=== PATIENT | female | born 1980 | race African-American/Black ===

== ENCOUNTER → 2016-11-07 | Day surgery (SDC) | payer OTHER ==
[~2016-11-07] VITALS: Ht 167.6 cm; Wt 127.0 kg
[~2016-11-07] MED LIST: CYCLOBENZAPRINE10 M1 PO; MOBIC15 M1 PO
--- NOTE | 2016-11-07 11:28 | Operative Report ---
Operative/Inv Procedure Report Surgery Date: 11/07/16 Name of Procedure: Laparoscopy peritoneal washings Pre-Operative Diagnosis: Pelvic pain and pelvic mass Post-Operative Diagnosis: Fibroids fibroids degenerating Estimated Blood Loss: scant Surgeon/Warehouse Freight Handler: JUAQUIN KAY MD Anesthesia: general endotracheal tube Operative/Procedure Note Note: Was taken the operating room placed supine position after adequate induction general anesthesia via endotracheal tube patient placed in dorsolithotomy position the vagina was prepped and draped so fashion bladder was catheterized examination under anesthesia was performed surgeon regowned and gloved the abdomen was prepped and draped so fashion stab incision was made the umbilicus a Veress needle was inserted atraumatically the umbilicus was a negative drop test the abdomen was insufflated proximal 4 L of CO2 to liver edge dullness at which point the Veress needle was removed a 10 mm trocar was inserted atraumatically through that sheath a laparoscope was placed under direct visualization a 5 mm trocar was placed 2 fingerbreadths of symptoms pubis in the midline at this point fluid was placed into the abdomen pictures were taken maximal CO2 was removed peritoneal washings were sent off on the on since removed from the abdomen the incision at the umbilicus was oversewn using 0 for the fascia 3-year -old was used for the skin incision a 5 mm trocar incision was closed using 30 Marcaine was injected underneath both incisions at the end the case the Pedroza cannula was moved Harper was removed wants was removed from the vagina patient was returned spine position she was awakened from anesthesia extubated and transferred recovery room awake and alert with counts correct Findings: 16 week size fibroid uterus with a 4 cm anterior cervical fibroid a 5 cm fibroid pedunculated degenerating a 3 cm posterior fundal fibroid and a 2 cm anterior fundal fibroid normal ovaries bilaterally otherwise normal anatomy
== END ==
LOC: STS 11-06 23:07
DX: R10.2 Pelvic and perineal pain (principal); D25.9 Leiomyoma of uterus, unspecified; D26.0 Other benign neoplasm of cervix uteri
CPT/HCPCS: 81025; 88305; J0131; J2250; J2405

== ENCOUNTER 2018-01-29 09:19 | Inpatient (IN) | payer OTHER ==
[~2018-01-29] VITALS: Ht 167.6 cm; Wt 135.2 kg
[2018-01-29 10:12] LABS: ABSOLUTE BASOPHIL COUNT 0 /CUMM (0.0-0.2); ABSOLUTE EOSINOPHIL COUNT 0.1 /CUMM (0.0-0.7); ABSOLUTE GRANULOCYTE CT 4.3 /CUMM (1.4-6.5); ABSOLUTE LYMPH COUNT 1.7 /CUMM (1.2-3.4); ABSOLUTE MONOCYTE COUNT 0.5 /CUMM (0.10-0.60); BASOPHIL % 0.2 % (0.0-2.0); EOSINOPHIL % 0.8 % (0-5); GRANULOCYTE % 66.6 % (42.2-75.2); MEAN CORPUSCULAR HGB 24.8 PG (27.0-31.0); MEAN CORPUSCULAR HGB CONC 32.7 G/DL (33.0-37.0); MEAN CORPUSCULAR VOLUME 75.7 FL (81.0-99.0); MEAN PLATELET VOLUME 8.8 FL (7.4-10.4); PLATELET COUNT 324 /CUMM (130-400); RBC DISTRIBUTION WIDTH 16.8 % (11.5-14.5); RED BLOOD CELL CT 4.75 /CUMM (4.20-5.40); WHITE BLOOD CELL COUNT 6.5 /CUMM (4.8-10.8)
--- NOTE | 2018-01-29 11:23 | History & Physical Pre-Op ---
General Information and HPI MD Statement: I have seen and personally examined DENILSON HICKEY and documented this H&P. The patient is a 37 year old F who presented with a patient stated chief complaint of LGA[]. History of Present Illness: 37-year-old 4 para 0030 at 39 weeks gestation with an inducible cervix and large for gestational age . Patient has had adequate care with normal level I level level II she's had a normal one-hour glucose test she has negative group B strep she knife discussed expectant management for large for gestational age at 39 weeks versus on induction with inducible cervix and the risks of morbid obesity and shoulder dystocia and Pitocin and patient has been given opportunity ask questions and signed her consents Allergies/Medications Allergies: Coded Allergies: NO KNOWN ALLERGIES (02/02/16) Home Med list No Known Home Medications Past History Medical History Neurological: NONE EENT: NONE Cardiovascular: NONE Respiratory: NONE Gastrointestinal: NONE Hepatic: NONE Renal: NONE Musculoskeletal: NONE Psychiatric: NONE Endocrine: NONE Blood Disorders: NONE Cancer(s): NONE 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 Surgical History Pertinent Surgical History: non-contributory, N Past Family/Social History Psychosocial History Smoking Status: Never Smoked Review of Systems Review of Systems: NEG 13 PT Exam & Diagnostic Data Last 24 Hrs of Vital Signs/I&O Intake & Output 01/29 1600 01/29 0800 01/29 0000 Intake Total Output Total Balance Patient 298 lb Weight Physical Exam: Obese black female in no apparent distress HEENT anicteric Lungs clear Heart S1 and S2 normal sinus rhythm Abdomen gravid estimated weight 3900 g Extremities +1 edema negative Homans Pelvic 4-5 cm 90% posterior vertex at 0 station intact Assessment/Plan Assessment/Plan: Assessment is term large for gestational age inducible cervix morbid obesity PlanPitocin induction IUPCi FM observe for As Ranked By This Provider Problem List: 1.
--- NOTE | 2018-01-29 20:36 | PN- Obstetrical ---
Subjective Subjective: I WANT THIS BABY OUT Objective Last 24 Hrs of Vital Signs/I&O Intake & Output 01/29 1600 01/29 0800 01/29 0000 Intake Total Output Total Balance Patient 298 lb Weight Physical Exam: PE OBESE BF IN NAD ABD SOFT NT [id number] EXT =1 EDEMA Obstetric Exam Dilation (cm): 9 Effacement (%): 100 Station: 0 Membranes: AROM Fluid: clear Multiple Gestation? No Contractions: Q 3MINUTES Assessment/Plan Assessment/Plan ASSESS TERM FAILED INDUCTION ARREST OF DILATION
[2018-01-30 00:25] VITALS: BP 100/60
[2018-01-30 07:52] LABS: ABSOLUTE BASOPHIL COUNT 0 /CUMM (0.0-0.2); ABSOLUTE EOSINOPHIL COUNT 0 /CUMM (0.0-0.7); ABSOLUTE GRANULOCYTE CT 8.7 /CUMM (1.4-6.5); ABSOLUTE LYMPH COUNT 1.3 /CUMM (1.2-3.4); ABSOLUTE MONOCYTE COUNT 0.7 /CUMM (0.10-0.60); BASOPHIL % 0.1 % (0.0-2.0); EOSINOPHIL % 0 % (0-5); GRANULOCYTE % 80.7 % (42.2-75.2); HEMATOCRIT 31.2 % (37-47); MEAN CORPUSCULAR HGB 24.8 PG (27.0-31.0); MEAN CORPUSCULAR HGB CONC 32.5 G/DL (33.0-37.0); MEAN CORPUSCULAR VOLUME 76.2 FL (81.0-99.0); MEAN PLATELET VOLUME 9.1 FL (7.4-10.4); PLATELET COUNT 265 /CUMM (130-400); RBC DISTRIBUTION WIDTH 16.5 % (11.5-14.5); RED BLOOD CELL CT 4.09 /CUMM (4.20-5.40)
[2018-01-30 08:04] LABS: WHITE BLOOD CELL COUNT 10.7 /CUMM (4.8-10.8)
[2018-01-30] MEDS ORDERED: IBUPROFEN800 M1 PO (09:28)
[2018-01-30] MEDS ORDERED: PERCOCET 5-3251 EACH PO (09:28)
--- NOTE | 2018-01-30 14:35 | PN- Post Delivery/GYN ---
Subjective Subjective: NO COMPLAINTS Review of Systems: nEGATIVE Objective Last 24 Hrs of Vital Signs/I&O Vital Signs Date Time Temp Pulse Resp B/P B/P Pulse O2 O2 Flow FiO2 Mean Ox Delivery Rate 01/30 0025 100/60 Physical Exam: OBESE BLACK FEMALE IN NO APPARENT DISTRESS SITTING IN CHAIR EATING HER BREAKFAST aBDOMEN SOFT NONTENDER fUNDUS FIRM NONTENDER INCISION CLEAN DRY AND INTACT eXTREMITIES +1 EDEMA NEGATIVE hOMANS Assessment/Plan Assessment/Plan ASSESSMENT STATUS POST PRIMARY LOW FLAP TRANSVERSE SECTION FOR SOFT TISSUE DYSTOCIA FIBROIDSSPACE ANEMIA pLAN CONTINUE POSTOP CARE ADVANCED DIET ADVANCE AMBULATION lOVENOX CHECK cbcS
--- NOTE | 2018-01-30 14:41 | Operative Report ---
Operative/Inv Procedure Report Surgery Date: 01/29/18 Name of Procedure: Primary low flap transverse section via Pfannenstiel skin incision Pre-Operative Diagnosis: Arrest of dilatation Post-Operative Diagnosis: Same soft tissue dystocia fibroids Estimated Blood Loss: 500 Surgeon/Road Freight Brake Coupler: Keagan GOMEZ,Angie Arevalo MD Anesthesia: general endotracheal tube, block Operative/Procedure Note Note: Patient was taken the operating room placed on position after adequate anesthesia patient placed in dorsolithotomy position the vagina was prepped and draped so fashion patient had a Harper I she had an epidural in place the epidural was dosed by anesthesia skin testing was performed 4 times found to be inadequate for surgery this point adequate general induction of anesthesia abdomen had been prepped and draped so fashion through Pfannenstiel skin incision skin was cut carried down to rectus fascia second knife cut in curvilinear fashion using Bovie on this point the rectus sheath was dissected bluntly as well as sharply off the rectus muscle . Peritoneum was entered high into the abdomen. Low blade the Ripley was placed and lower in the incision a bladder flap was developed sharply the low blade was replaced. In the lower uterine segment was nicked with a knife. The uterus was entered with the back of the knife. The incision was extended bluntly as well as sharply. All instruments were removed from the field the was delivered over the abdominal wall. The cord was doubly clamped and cut. The infant was handed to the document examiner was waiting in the delivery room to aid in the resuscitation. The placenta was delivered manually noted to be intact wiped with 4 wet dry laps continuous removal of the tissue using a Phyllis. Intravenous Pitocin as well as intramyometrial Pitocin was used for uterine contractility at this point uses oversewn rowlock and suture was indicated interrupted [id number] is well of 0 suture. 2 separate layers of 0 Vicryl were made. Hemostasis was apparent. The fascia was reapproximated to continue sutures #1 the skin was reapproximated using maria teresa after Bovie quite irrigation of the subcutaneous tissue. Patient was awakened from anesthesia extubated and transported recovery room awake alert with counts correct Findings: Enlarged uterus on 4 separate fibroids in the fundus 4 cm each normal ovaries bilaterally otherwise normal anatomy viable female vertex clear fluid three-vessel cord
--- NOTE | 2018-01-31 09:38 | PN- Post Delivery/GYN ---
Subjective Subjective: BOTTLE FEEDING Review of Systems: POS FLATUS Objective Last 24 Hrs of Vital Signs/I&O VSS AFEBRILE Physical Exam: INCISON C/D/I FF EXT NT Assessment/Plan Assessment/Plan S/P C/S POD2 STABLE DISCHARGE IN AM Problem List: 1.
--- NOTE | 2018-02-01 11:02 | PN- Post Delivery/GYN ---
Subjective Subjective: READY FOR DISCHARGE Review of Systems: NEG Objective Last 24 Hrs of Vital Signs/I&O VSS Physical Exam: FF WOUND C/D/I EXT NT Assessment/Plan Assessment/Plan S/P C/S POD3 STABLE DISCHARGE HOME F/U 2 WEEKS Problem List: 1.
== END 2018-02-01 11:15 | DRG 766 ==
LOC: GNO 09:19
PROVIDERS: Specialist
PROC: 10D00Z1 Extraction of Products of Conception, Low, Open Approach (ICD-10-PCS; principal; 2018-01-29)
PROC: 3E033VJ Introduction of Other Hormone into Peripheral Vein, Percutaneous Approach (ICD-10-PCS; 2018-01-29)
DX: O36.63X0 Maternal care for excessive fetal growth, third trimester, not applicable or unspecified (principal); E66.01 Morbid (severe) obesity due to excess calories; O62.1 Secondary uterine inertia; O90.81 Anemia of the puerperium; O34.13 Maternal care for benign tumor of corpus uteri, third trimester; O99.214 Obesity complicating childbirth; Z3A.39 39 weeks gestation of pregnancy; Z37.0 Single live birth
CPT/HCPCS: GNOP; GNOS; 36415; 81001; 87086; J0131; J0690; J1650; J1885; J7120

== ENCOUNTER 2018-02-05 09:31 | Inpatient (IN) | payer OTHER ==
[~2018-02-05] VITALS: Ht 167.6 cm; Wt 122.5 kg
[~2018-02-05 09:31] MED LIST changes: +IBUPROFEN800 M1 PO; +PERCOCET 5-3251 EACH PO
--- NOTE | 2018-02-05 09:59 | ED DYSPNEA/ASTHMA COMPLAINT ---
History of Present Illness General Chief Complaint: General Adult Stated Complaint: SOB; R SIDED ABD PAIN Source: patient Exam Limitations: no limitations Vital Signs & Intake/Output Vital Signs & Intake/Output Vital Signs Date Time Temp Pulse Resp B/P B/P Pulse O2 O2 Flow FiO2 Mean Ox Delivery Rate 02/05 1534 98.5 64 18 142/80 97 Room Air 02/05 1400 98.8 78 18 142/84 94 Room Air 02/05 1132 97.9 80 22 124/70 95 Room Air 02/05 0937 97.7 73 22 144/86 97 Room Air Allergies Coded Allergies: NO KNOWN ALLERGIES (02/02/16) Reconcile Medications No Known Home Medications Triage Note: PER PT INCREASED SOB X 2 DAYS RT SIDED RIB PAIN AND PAIN IN [employer] SP 1 WEEK AGO Triage Nurses Notes Reviewed? yes Onset: Abrupt Duration: day(s): (2-3) Timing: recent history Severity: moderate, severe : No Patient currently breastfeeds: No HPI: 37-year-old female postop 1 week ago comes into the emergency room with right upper abdominal pain shortness of breath is been going on for the last 2-3 days. She denies any fever chills coughing. She complains of some right upper abdominal pain. Sharp. Denies any discharge from her incision site or pain in her lower abdomen. Denies any fever chills. Denies any other associated symptoms. (Marlo French) Past History Travel History Traveled to [place] past 21 day No Medical History Any Pertinent Medical History? 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 No (Marlo French) Review of Systems Review of Systems Constitutional: Reports: no symptoms. EENTM: Reports: no symptoms. Respiratory: Reports: see HPI. Cardiovascular: Reports: see HPI. GI: Reports: see HPI. Genitourinary: Reports: no symptoms. Musculoskeletal: Reports: no symptoms. Skin: Reports: no symptoms. Neurological/Psychological: Reports: no symptoms. Hematologic/Endocrine: Reports: no symptoms. Immunologic/Allergic: Reports: no symptoms. All Other Systems: Reviewed and Negative (Marlo French) Physical Exam Physical Exam General Appearance: well developed/nourished, alert, awake, mild distress, obese Head: atraumatic Eyes: Bilateral: normal appearance. Ears, Nose, Throat: normal ENT inspection, hearing grossly normal Neck: normal inspection Respiratory: normal breath sounds, no respiratory distress Cardiovascular: regular rate/rhythm Gastrointestinal: soft, tenderness (RUQ), iNCISION SITE SHOWS NO DRAINAGE, NO ERYTHEMA, Extremities: normal inspection Neurologic/Psych: awake, alert, oriented x 3 Skin: intact, normal color Core Measures ACS in differential dx? Yes CVA/TIA Diagnosis No Sepsis Present: No Sepsis Focused Exam Completed? No (Marlo French) Progress Differential Diagnosis: asthma, AMI, CHF, pericarditis, pulmonary embolism, pneumonia, pneumothorax, cHOLECYSTITIS, BILIARY COLIC, PANCREATITIS Plan of Care: Orders Procedure Date/time Status Heart Healthy Diet 02/05 D Active Patient Data 02/05 1619 Active ECHOCARDIOGRAM 02/05 1616 Active ED Holding Orders 02/05 1533 Active Admit to inpatient 02/05 1533 Active Vital Signs 02/05 1533 Active Code Status 02/05 1533 Active Patient Data 02/05 1530 Active BLOOD CULTURE 02/05 1516 Active LIPASE 02/05 1118 Complete Intake & Output 02/05 1108 Active TROPONIN LEVEL 02/05 0959 Complete D-DIMER 02/05 0959 Complete COMPREHENSIVE METABOLIC PANEL 02/05 0959 Complete CBC WITHOUT DIFFERENTIAL 02/05 0959 Complete B-TYPE NATRIURETIC PEP (BNP) 02/05 0959 Complete EKG 02/05 0959 Active Laboratory Tests 02/05/18 1118: Anion Gap 11, Estimated GFR > 60, BUN/Creatinine Ratio 18.6, Glucose 109 H, Calcium 8.6, Total Bilirubin 0.6, AST 22, ALT 30, Alkaline Phosphatase 85, Troponin I 0.03, Dbw-T-Wxkhwcluyhf Pept 667 H, Total Protein 6.0 L, Albumin 2.9 L, Globulin 3.1, Albumin/Globulin Ratio 0.9 L, Lipase 37, D-Dimer High Sensitivty 1107 H, CBC w Diff MAN DIFF ORDERED, RBC 3.68 L, MCV 76.7 L, MCH 25.0 L, MCHC 32.7 L, RDW 17.1 H, MPV 8.1, Gran % 74.9, Lymphocytes % 13.9 L, Monocytes % 7.3, Eosinophils % 0.7, Basophils % 3.2 H, Absolute Granulocytes 5.0, Segmented Neutrophils 73, Band Neutrophils 2, Absolute Lymphocytes 0.9 L, Lymphocytes 15 L, Monocytes 9, Absolute Monocytes 0.5, Eosinophils 1, Absolute Eosinophils 0, Absolute Basophils 0.2, Platelet Estimate ADEQUATE, Polychromasia 2+, Hypochromic-Microcytic 2+, Anisocytosis 1+, Microcytic Cells 1+ 02/05/18 1016: Lipase Cancelled Microbiology 02/05 1625 BLOOD: Blood Culture - RECD 02/05 1516 BLOOD: Blood Culture - ORD Diagnostic Imaging: Viewed by Me: Radiology Read. Discussed w/RAD: Radiology Read. Radiology Impression: PATIENT: DENILSON HICKEY PRESENT AGE: 37 PATIENT ACCOUNT NO: [id number] : 82 LOCATION: [facility] ORDERING PHYSICIAN: Marlo BORREGO SERVICE DATE: 02/05/18 EXAM TYPE: CAT - CTA CHEST-PULMONARY EMBOLISM EXAMINATION: CT ANGIOGRAM OF THE CHEST WITH AND WITHOUT CONTRAST (CT PULMONARY ANGIOGRAM FOR PE) CLINICAL INFORMATION: Shortness of breath, elevated d-dimer, recent surgery. COMPARISON: Chest radiograph performed earlier the same day. TECHNIQUE: Prior to contrast administration, noncontrast localization images were obtained. Subsequently, multidetector volumetric imaging was performed from the thoracic inlet to below the diaphragms following the administration of 95 mL Optiray 320 intravenous contrast. No contrast reaction reported. Sagittal, coronal, and MIP oblique sagittal reformatted images were obtained on the CT workstation, uploaded to PACS, and reviewed. Total exam dose-length product 545 mGy-cm. FINDINGS: QUALITY OF STUDY/ CONTRAST BOLUS: Satisfactory PULMONARY ARTERIES: No central or segmental pulmonary emboli. THORACIC AORTA: No aneurysm or dissection. LUNG: The central airways are patent. There are patchy areas of consolidation throughout both lungs but predominantly involving the right upper and middle lobes and the bilateral lower lobes. There is some associated interlobular septal thickening. No confluent consolidation is seen. PLEURA: No pleural effusion or pneumothorax. MEDIASTINUM: Normal heart size. No pericardial effusion. No hilar or mediastinal lymphadenopathy. No evidence of septal bowing or right heart strain. CHEST WALL/ AXILLA: No axillary or internal mammary lymphadenopathy. OSSEOUS STRUCTURES: Mild dextroscoliotic curvature centered in the lower thoracic spine. UPPER ABDOMEN: No reflux of contrast into the hepatic veins to suggest elevated right heart pressures. IMPRESSION: - No central or segmental pulmonary embolism. - Patchy areas of multifocal consolidation involving both lungs compatible with atypical pneumonia. No confluent consolidation is seen. VTE: negative DICTATED BY: Jose Briseno MD DATE/TIME DICTATED:02/05/181419 CORE SHAPER SIDES: MATIAS DATE/TIME TRANSCRIBED:02/05/181419 CONFIDENTIAL, DO NOT COPY WITHOUT APPROPRIATE AUTHORIZATION. <Electronically signed in Other Vendor System> SIGNED BY: Jose Briseno MD 02/05/18 143, PATIENT: DENILSON HICKEY PRESENT AGE: 37 PATIENT ACCOUNT NO: [id number] : LOCATION: [facility] ORDERING PHYSICIAN: Marlo BORREGO SERVICE DATE: EXAM TYPE: US - US-LIMITED ABDOMEN EXAMINATION: US ABDOMEN LIMITED CLINICAL INFORMATION: Right upper quadrant pain.. COMPARISON: CT abdomen pelvis 08/13/2008 TECHNIQUE: Real-time imaging of the right upper quadrant abdominal viscera. Examination limited secondary to patient body habitus and patient's inability to maintain deep breath holds. FINDINGS: PANCREAS: Visualized portions of pancreas are normal in appearance. LIVER: The liver appears mildly enlarged. The liver demonstrates normal contour and echogenicity. No focal lesion or intrahepatic biliary duct dilatation. GALLBLADDER: The gallbladder is physiologically distended. Several gallstones are appreciated. There is regional gallbladder wall thickening where it abuts the liver, measuring up to 1.4 cm in thickness. There is some edema in this region of thickening. Sonographic Valdes' s sign is positive. COMMON BILE DUCT: Normal in caliber measuring 0.3 cm in diameter. RIGHT KIDNEY: Normal. No hydronephrosis. No renal calculi or focal parenchymal lesions. The kidney measures 13.1 cm in maximum dimension. FREE FLUID: None. IMPRESSION: Gallstones are present within a physiologically distended gallbladder. There is regional gallbladder wall thickening measuring up to 1.4 cm where the gallbladder abuts the liver. There is some edema in this region of wall thickening. Sonographic Valdes sign is positive. There is a long differential for these findings. This may represent early acute cholecystitis. This may also represent changes related to liver abnormality/disease. Clinical correlation and correlation with lab values is required. DICTATED BY: Lex Helton MD DATE/TIME DICTATED:02/05/181139 CORE SHAPER SIDES:MATIAS DATE/TIME TRANSCRIBED:02/05/181139 CONFIDENTIAL, DO NOT COPY WITHOUT APPROPRIATE AUTHORIZATION. <Electronically signed in Other Vendor System> SIGNED BY: Lex Helton MD 02/05/18 1203 Initial ED EKG: normal sinus rhythm, rate (74), nonspecific ST T wave chg (Marlo French) Departure Departure Disposition: STILL A PATIENT Condition: Stable Clinical Impression Primary Impression: Pneumonia Secondary Impressions: Cholelithiasis Referrals: Patient Has No Primary Care Dr (PCP/Family) Departure Forms: Customer Survey General Discharge Information Prescriptions: Current Visit Scripts No Known Home Medications Admission Note Spoke With: Antoinette Ruiz MD Documentation of Exam: Documentation of any treatments & extenuating circumstances including Concerns Regarding Discharge (functional status, medication knowledge or non-compliance, living conditions, etc.) that warrant an admission rather than observation: Patient has a multilobar pneumonia. She will require IV antibiotics. Concerns for cholecystitis on ultrasound. Patient will require IV antibiotics and monitoring of liver function tests and vital signs. Surgery consult. Patient may require a laparoscopic cholecystectomy. Surgery was consult and will follow the patient but do not want to do surgery immediately due to the pneumonia currently. (Marlo French) PA/EDUCATIONAL ASSISTANT TEACHER Co-Sign Statement Statement: ED Attending supervision documentation- [X] I saw and evaluated the patient. I have also reviewed all the pertinent lab results and diagnostic results. I agree with the findings and the plan of care as documented in the PA's/EDUCATIONAL ASSISTANT TEACHER's documentation. [X] I have reviewed the ED Record and agree with the PA's/EDUCATIONAL ASSISTANT TEACHER's documentation. [] Additions or exceptions (if any) to the PAs/EDUCATIONAL ASSISTANT TEACHER's note and plan are summarized below: [Patient to be admitted for IV antibiotics for pneumonia treatment and surgical consult for biliary colic.] (Garett GOMEZ,Norman Salazar) Critical Care Note Critical Care Note Critical Care Time: 30-74 min (35) (Marlo French) (Marlo French)
--- NOTE | 2018-02-05 10:31 | RADIOLOGY REPORT ---
EXAMINATION: XR CHEST CLINICAL INFORMATION: 37-year-old female patient with shortness of breath. COMPARISON: Chest x-ray on 12/10/2010. TECHNIQUE: 2 views of the chest were obtained. FINDINGS: Cardiovascular mediastinal structures remain normal. Left lung is clear. There is a trace right pleural effusion. Peribronchial thickening involving the right lower lobe is thought to represent early atypical pneumonia. IMPRESSION: Early atypical pneumonia right lower lobe. Trace right pleural effusion.
[2018-02-05 11:34] LABS: ABSOLUTE BASOPHIL COUNT 0.2 /CUMM (0.0-0.2); ABSOLUTE EOSINOPHIL COUNT 0 /CUMM (0.0-0.7); ABSOLUTE LYMPH COUNT 0.9 /CUMM (1.2-3.4); ABSOLUTE MONOCYTE COUNT 0.5 /CUMM (0.10-0.60); BASOPHIL % 3.2 % (0.0-2.0); EOSINOPHIL % 0.7 % (0-5); GRANULOCYTE % 74.9 % (42.2-75.2); HEMATOCRIT 28.2 % (37-47); MEAN CORPUSCULAR HGB CONC 32.7 G/DL (33.0-37.0); MEAN CORPUSCULAR VOLUME 76.7 FL (81.0-99.0); MEAN PLATELET VOLUME 8.1 FL (7.4-10.4); PLATELET COUNT 342 /CUMM (130-400); RBC DISTRIBUTION WIDTH 17.1 % (11.5-14.5); RED BLOOD CELL CT 3.68 /CUMM (4.20-5.40); WHITE BLOOD CELL COUNT 6.7 /CUMM (4.8-10.8)
--- NOTE | 2018-02-05 12:03 | ULTRASOUND REPORT ---
EXAMINATION: US ABDOMEN LIMITED CLINICAL INFORMATION: Right upper quadrant pain.. COMPARISON: CT abdomen pelvis 08/13/2008 TECHNIQUE: Real-time imaging of the right upper quadrant abdominal viscera. Examination limited secondary to patient body habitus and patient's inability to maintain deep breath holds. FINDINGS: PANCREAS: Visualized portions of pancreas are normal in appearance. LIVER: The liver appears mildly enlarged. The liver demonstrates normal contour and echogenicity. No focal lesion or intrahepatic biliary duct dilatation. GALLBLADDER: The gallbladder is physiologically distended. Several gallstones are appreciated. There is regional gallbladder wall thickening where it abuts the liver, measuring up to 1.4 cm in thickness. There is some edema in this region of thickening. Sonographic Valdes's sign is positive. COMMON BILE DUCT: Normal in caliber measuring 0.3 cm in diameter. RIGHT KIDNEY: Normal. No hydronephrosis. No renal calculi or focal parenchymal lesions. The kidney measures 13.1 cm in maximum dimension. FREE FLUID: None. IMPRESSION: Gallstones are present within a physiologically distended gallbladder. There is regional gallbladder wall thickening measuring up to 1.4 cm where the gallbladder abuts the liver. There is some edema in this region of wall thickening. Sonographic Valdes sign is positive. There is a long differential for these findings. This may represent early acute cholecystitis. This may also represent changes related to liver abnormality/disease. Clinical correlation and correlation with lab values is required.
--- NOTE | 2018-02-05 14:35 | CT SCAN REPORT ---
EXAMINATION: CT ANGIOGRAM OF THE CHEST WITH AND WITHOUT CONTRAST (CT PULMONARY ANGIOGRAM FOR PE) CLINICAL INFORMATION: Shortness of breath, elevated d-dimer, recent surgery. COMPARISON: Chest radiograph performed earlier the same day. TECHNIQUE: Prior to contrast administration, noncontrast localization images were obtained. Subsequently, multidetector volumetric imaging was performed from the thoracic inlet to below the diaphragms following the administration of 95 mL Optiray 320 intravenous contrast. No contrast reaction reported. Sagittal, coronal, and MIP oblique sagittal reformatted images were obtained on the CT workstation, uploaded to PACS, and reviewed. Total exam dose-length product 545 mGy-cm. FINDINGS: QUALITY OF STUDY/CONTRAST BOLUS: Satisfactory PULMONARY ARTERIES: No central or segmental pulmonary emboli. THORACIC AORTA: No aneurysm or dissection. LUNG: The central airways are patent. There are patchy areas of consolidation throughout both lungs but predominantly involving the right upper and middle lobes and the bilateral lower lobes. There is some associated interlobular septal thickening. No confluent consolidation is seen. PLEURA: No pleural effusion or pneumothorax. MEDIASTINUM: Normal heart size. No pericardial effusion. No hilar or mediastinal lymphadenopathy. No evidence of septal bowing or right heart strain. CHEST WALL/AXILLA: No axillary or internal mammary lymphadenopathy. OSSEOUS STRUCTURES: Mild dextroscoliotic curvature centered in the lower thoracic spine. UPPER ABDOMEN: No reflux of contrast into the hepatic veins to suggest elevated right heart pressures. IMPRESSION: - No central or segmental pulmonary embolism. - Patchy areas of multifocal consolidation involving both lungs compatible with atypical pneumonia. No confluent consolidation is seen. VTE: negative
--- NOTE | 2018-02-05 17:17 | History & Physical ---
Marichuy GOMEZ,[facility] 02/05/18 1716: General Information and HPI MD Statement: I have seen and personally examined DENILSON HICKEY and documented this H&P. The patient is a 37 year old F who presented with a patient stated chief complaint of [shortness of breath]. Source of Information: patient Exam Limitations: no limitations History of Present Illness: 37 yo F with no PMH presented to the ED with complains of shortness of breath. The patient states that for the past 2-3 days she has been experiencing dyspnea with minimal exertion like picking up her baby, changing diapers and standing up. She has noticed that her breathing has been more heavy. Denies any chest pain. She had a Last . She also has been experiencing some back pain and lower abdominal pain not aggravated by food and without assoicated nausea or vomiting. She has been taking motrin 800mg every 8-10 hours which has provided her some relief. Mentions having history of iron deficiency anemia but does not like taking iron supplement as it tends to make her constipated. Allergies/Medications Allergies: Coded Allergies: NO KNOWN ALLERGIES (02/02/16) Home Med list No Known Home Medications Past History Travel History Traveled to [place] past 21 day No Medical History Neurological: NONE EENT: NONE Cardiovascular: NONE Respiratory: NONE Gastrointestinal: NONE Hepatic: NONE Renal: NONE Musculoskeletal: NONE Psychiatric: NONE Endocrine: NONE Blood Disorders: NONE Cancer(s): NONE [employer]/Reproductive: TOP 3XS Surgical History Surgical History: non-contributory, N Review of Systems Review of Systems Constitutional: Denies: chills, fever. EENTM: Reports: no symptoms. Cardiovascular: Reports: peripheral edema. Denies: chest pain, palpitations. Respiratory: Reports: orthopnea, short of breath. GI: Reports: abdominal pain, constipation. Genitourinary: Reports: no symptoms. Musculoskeletal: Reports: back pain. Skin: Reports: no symptoms. Neurological/Psychological: Reports: no symptoms. Hematologic/Endocrine: Reports: no symptoms. Exam & Diagnostic Data Last 24 Hrs of Vital Signs/I&O Vital Signs Date Time Temp Pulse Resp B/P B/P Pulse O2 O2 Flow FiO2 Mean Ox Delivery Rate 02/05 1841 99.4 80 18 144/80 95 Room Air 02/05 1534 98.5 64 18 142/80 97 Room Air 02/05 1400 98.8 78 18 142/84 94 Room Air 02/05 1132 97.9 80 22 124/70 95 Room Air 02/05 0937 97.7 73 22 144/86 97 Room Air Intake & Output 02/05 1600 02/05 0800 02/05 0000 Intake Total 0 Output Total Balance 0 Intake, Oral 0 Physical Exam General Appearance Alert, Oriented X3, Cooperative, Mild Distress, anxious Skin No Rashes, No Breakdown Skin Temp/Moisture Exam: Warm/Dry Sepsis Skin Exam (color): Normal for Ethnicity HEENT Atraumatic Cardiovascular Normal S1, Normal S2, No Murmurs Lungs Normal Air Movement, bibasilar crackles Abdomen Soft, RUQ tenderness, incision site looks well healed. Neurological Normal Speech Extremities b/l lower extremity 2+ edema Last 24 Hrs of Labs/Rosas: Laboratory Tests 02/05/18 1118: Anion Gap 11, Estimated GFR > 60, BUN/Creatinine Ratio 18.6, Glucose 109 H, Calcium 8.6, Total Bilirubin 0.6, AST 22, ALT 30, Alkaline Phosphatase 85, Troponin I 0.03, Sdc-P-Eomixxantlf Pept 667 H, Total Protein 6.0 L, Albumin 2.9 L, Globulin 3.1, Albumin/Globulin Ratio 0.9 L, Lipase 37, D-Dimer High Sensitivty 1107 H, CBC w Diff MAN DIFF ORDERED, RBC 3.68 L, MCV 76.7 L, MCH 25.0 L, MCHC 32.7 L, RDW 17.1 H, MPV 8.1, Gran % 74.9, Lymphocytes % 13.9 L, Monocytes % 7.3, Eosinophils % 0.7, Basophils % 3.2 H, Absolute Granulocytes 5.0, Segmented Neutrophils 73, Band Neutrophils 2, Absolute Lymphocytes 0.9 L, Lymphocytes 15 L, Monocytes 9, Absolute Monocytes 0.5, Eosinophils 1, Absolute Eosinophils 0, Absolute Basophils 0.2, Platelet Estimate ADEQUATE, Polychromasia 2+, Hypochromic-Microcytic 2+, Anisocytosis 1+, Microcytic Cells 1+ 02/05/18 1016: Lipase Cancelled Microbiology 02/05 1625 BLOOD: Blood Culture - RECD 02/05 1516 BLOOD: Blood Culture - ORD Assessment/Plan Assessment: 37 yo F with no PMH presented to the ED with complains of shortness of breath for the past 2-3 days. Assessment: 1. Dyspnea 2. ?Acute Cholecystitis 3. ? cardiomyopathy 4. Microcytic Anemia Plan: * Admit patient to telemetry for monitoring of arrhythmias. * Rule out ACS with serial troponins and EKGs. * Cardiology consult * Echocardiogram to assess LVEF and to assess for dilated cardiomyopathy. * Her Chest CTA shows patchy areas of multifocal consolidation concerning for atypical pneumonia. However, she neither has fevers or a white count and her symptoms is unlikely because of it. * Her RUQ showed cholelithiasis with regional gallbladder wall thickening concerning for cholecystitis. She received IV Ceftriaxone and Azithromycin in the ED. * Would continue her on antibiotics at this time. * Gen surgery consult * She appears to be anxious. Was suggested to try anxiolytics but the patient does not wish to use medication at this time. * Pain control with Tylenol (mild), Motrin (moderate) and Percocet (severe) * Diet: Regular * DVT Prophylaxis: SC Lovenox * Code: Full Code. As Ranked By This Provider Problem List: 1. Cholelithiasis Core Measures/Misc (05/25) Acute Coronary Syndrome ACS Diagnosis: No Congestive Heart Failure Congestive Heart Failure Diagnosis No Cerebrovascular Accident CVA/TIA Diagnosis: No VTE (View Protocol) VTE Risk Factors Age>40 No Mechanical VTE Prophylaxis d/t N/A MechProphylax Ordered No VTE Pharm Prophylaxis d/t NA PharmProphylax ordered Sepsis (View protocol) Sepsis Present: No If YES complete Sepsis Event Note If YES complete Sepsis Event Note Antoinette Ruiz MD 02/05/18 1752: Core Measures/Misc (05/25) Sepsis (View protocol) If YES complete Sepsis Event Note If YES complete Sepsis Event Note Attending MD Review Statement Attending Statement Attending MD Statement: examined this patient, discuss w/resident/PA/COLLAR PACKER, agreed w/resident/PA/COLLAR PACKER, reviewed EMR data (avail), discussed with nursing, amended to note Attending Assessment/Plan: Patient is a 37-year-old female who 1 week ago had a delivery of a 39 weeks gestation baby via section baby was reported to be large for gestational age. Procedure was uncomplicated and she was discharged from the hospital 4 days ago. She reports that since discharge she has been discontinued with exertion. This has progressed over the past few days to the point where she is dyspneic with minimal exertion. She reports orthopnea. According while . She admits to lower extremity swelling however this denies chest pain but admits to palpitations. Denies cough. Denies fever or chills. Denies nausea vomiting. Denies dysphagia or odynophagia. She also reported vague abdominal discomfort which she initially attributed to the surgical procedure. As symptoms of shortness of breath and abdominal pain worsened she decided to come to the emergency room for evaluation today. She arrived emergency room afebrile and hemodynamically stable. Laboratory data shows no leukocytosis. D-dimer was checked and was found to be markedly elevated which is not unexpected following her recent surgery. This prompted a CT angiogram that showed no evidence of pulmonary embolism. It did however raise concern for patchy areas of multifocal consolidation involving both lungs compatible with atypical pneumonia. An abdominal ultrasound was done that showed gallstones with gallbladder distention and gallbladder wall thickening. Patient was started on IV Rocephin, azithromycin and Flagyl and referred to the medical service for further management. On evaluation in the emergency room patient was lying in bed sitting upright. She initially appeared to be in respiratory distress struggling to breathe however she was able to hold food conversations and did not appear significantly short of breath when relaxed. She reported having significant right upper quadrant abdominal pain but did admit to relief with ibuprofen that had just been administered. She is saturating 96% on room air. General appearance: Well-developed. HEENT: Anicteric, no pallor, pupils equal and reactive. Neck: Supple with no jugular venous distention. Heart: S1-S2 regular with no audible murmur. Lungs: Diminished breath sounds in lung bases. No added sounds. Abdomen: Nondistended with normal bowel sounds. Soft, nontender with no palpable masses. Intact section surgical scar with no evidence of infection. Extremities: 1+ pedal edema bilaterally. Skin: Intact Problems: 1. Dyspnea; bilateral infiltrates noted on CT imaging raising concern for pneumonia. Also within the differential is cardiomyopathy. 2. Cholecystitis. 3. state. Plan: -Admit to inpatient medical service. - It is unusual for young healthy lady who suddenly presented with atypical pneumonia with bilateral infiltrates without any productive cough, fever or leukocytosis. Cardiomyopathy leading to bilateral interstitial edema is certainly within the differential. We will cover patient empirically with Rocephin and azithromycin. In the absence of any history of MRSA or evidence of severe sepsis I do not believe she warrants coverage with vancomycin and ceftazidime for hospital-acquired pathogens at this time. -Recommend sputum induction if possible to help guide antibiotic therapy. -She will need follow-up x-ray in the future to determine resolution of current findings. -Recommend diuresis with Lasix 40 mg IV daily. Trend cardiac enzymes and obtain cardiology consultation. obtain echocardiogram. -She was evaluated by the surgical service. Conservative management is recommended for now. Add Flagyl to the antibiotic regimen. Flakito Gee 02/05/181909: General Information and HPI MD Statement: I have seen and personally examined DENILSON HICKEY and documented this H&P. The patient is a 37 year old F who presented with a patient stated chief complaint of []. Core Measures/Misc (05/25) Sepsis (View protocol) If YES complete Sepsis Event Note If YES complete Sepsis Event Note Resident Review Statement Resident Statement: examined this patient, discussed with academic intern, agreed with academic intern, reviewed images Other Findings: 37-year-old woman past medical history significant for microcytic anemia, [id number], s/p 1 week ago without complications. Came in for evaluation of shortness of breath on minimal exertion associated with orthopnea. Which has been since the time of her where she was given IV fluids. She reports some mid upper quadrant pain that is intermittent and started yesterday. Denies chest pain, palpitations, fevers, nausea, vomiting,, expectoration, sick contacts, urinary symptoms. Was constipated until yesterday when she had a bowel movement. In the ED she was afebrile and hemodynamically stable. Laboratory data shows no leukocytosis elevated proBNP. D-dimer was elevated, CTA done ruled out pulmonary embolism, with some concern for patchy areas of multifocal consolidation bilaterally. Abdominal ultrasound showed gallstones with gallbladder distention and gallbladder wall thickening.. She was started on IV Rocephin and Zithromax and Flagyl. On examination she was noted to be in dyspneic, with elevated JVD, S1-S2 no murmurs, lungs bilateral bibasilar crackles, abdomen was soft distended however she did have some mild guarding as well as tenderness to palpation in the right upper quadrant, +2 pitting pedal edema that extends to 1/3 of her shins. Assessment and plan: Dyspnea: Her presentation is not consistent with pneumonia (afebrile, no leukocytosis,URI ,sick contact). Being -jamaican and obese puts her at higher risk for peripartum cardiomyopathy (examination findings of elevated JVD, bibasillar crackles and b/ l pitting edema), I believe she does have some underlying anxiety which could contribute to her dyspnea. Her peripheral edema could also be secondary to fluids given during childbirth. Will admit to tele floor for continuous cardaic monitoring, vitals per protocol, strict I/O and daily weights. Although ischemia is low on the differential will r/o by trending trop/EKG Urgent echo to assess LVEF and dilated cardiomyopathy, Dr. Gill is aware of the urgent echo. Will continue with daily diuresis If confirmed PPCM will benefit from MARCELINA and might need AC as they are a increased risk of develping blood clots. will keep on salt restricted diet. f/up TFT, HA1c, lipid panel RUQ pain No lab finding consistent with cholelithias however given US finding of physiologically distended gallbladder with regional gallbladder wall thickening and edema in this region of wall thickening. Sonographic Valdes sign is positive raises the possibility. Will continue to monitor. General surgery was consulted in ED recomending conservative management. Appreciate recomendations. Will continue to treat emperically with IV ceftriaxone and flagly pending cultures. dvt ppx sc lovenox full code.
--- NOTE | 2018-02-05 17:30 | Cons- General Surgery ---
General Information and HPI Consulting Request Date of Consult: 02/05/18 Requested By: Antoinette Ruiz MD Reason for Consult: Gallstones, ?cholecystitis Source of Information: patient History of Present Illness: 37-year-old female presented to the emergency room with some mild right-sided abdominal pain and shortness of breath for the past 2-3 days. Patient is status post one week ago. Denies any nausea or vomiting. Has been tolerating diet. Allergies/Medications Allergies: Coded Allergies: NO KNOWN ALLERGIES (02/02/16) Home Med List: No Known Home Medications Current Medications: Current Medications Sig/Catalina Start time Last Medication Dose Route Stop Time Status Admin Azithromycin 500 MG ONCE ONE 02/05 1515 DC 02/05 Sodium Chloride 250 ML IV 02/05 1614 1657 Ceftriaxone Sodium 0 .STK-MED ONE 02/05 1647 DC .ROUTE Ceftriaxone Sodium 1,000 MG ONCE ONE 02/05 1515 DC 02/05 IV 02/05 1516 1657 Ibuprofen 0 .STK-MED ONE 02/05 1707 DC PO Metronidazole 500 MG ONCE ONE 02/05 1515 DC N/A 1 UNIT IV 02/05 1614 Oxycodone/ 1 TAB Q6P PRN 02/05 1730 UNVr Acetaminophen PO Past History Medical History Neurological: NONE EENT: NONE Cardiovascular: NONE Respiratory: NONE Gastrointestinal: NONE Hepatic: NONE Renal: NONE Musculoskeletal: NONE Psychiatric: NONE Endocrine: NONE Blood Disorders: NONE Cancer(s): NONE 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 Exam & Diagnostic Data Vital Signs and I&O Vital Signs Date Time Temp Pulse Resp B/P B/P Pulse O2 O2 Flow FiO2 Mean Ox Delivery Rate 02/05 1534 98.5 64 18 142/80 97 Room Air 02/05 1400 98.8 78 18 142/84 94 Room Air 02/05 1132 97.9 80 22 124/70 95 Room Air 02/05 0937 97.7 73 22 144/86 97 Room Air Intake & Output 02/05 1600 02/05 0800 02/05 0000 02/04 1600 02/04 0800 02/04 0000 Intake Total 0 Output Total Balance 0 Intake, Oral 0 Physical Exam General Appearance: well developed/nourished, mild distress, obese Head: normal appearance Neck: supple Respiratory: normal breath sounds, decreased breath sounds Cardiovascular: regular rate/rhythm Gastrointestinal: soft, obese, nondistended, no discrete right upper quadrant pain/Valdes sign Back: normal inspection, normal range of motion Extremities: normal inspection Neurologic/Psych: no motor/sensory deficits Last 24 Hours of Labs: Laboratory Tests 02/05 02/05 1118 1016 Chemistry Sodium (137 - 145 mmol/L) 143 Potassium (3.5 - 5.1 mmol/L) 3.7 Chloride (98 - 107 mmol/L) 109 H Carbon Dioxide (22 - 30 mmol/L) 22 Anion Gap (5 - 16) 11 BUN (7 - 17 mg/dL) 13 Creatinine (0.5 - 1.0 mg/dL) 0.7 Estimated GFR (>60 ml/min) > 60 BUN/Creatinine Ratio (7 - 25 %) 18.6 Glucose (65 - 99 mg/dL) 109 H Calcium (8.4 - 10.2 mg/dL) 8.6 Total Bilirubin (0.2 - 1.3 mg/dL) 0.6 AST (14 - 36 U/L) 22 ALT (9 - 52 U/L) 30 Alkaline Phosphatase (<127 U/L) 85 Troponin I (< 0.11 ng/ml) 0.03 Zvj-A-Cpebefyqlxa Pept (<125 pg/mL) 667 H Total Protein (6.3 - 8.2 g/dL) 6.0 L Albumin (3.5 - 5.0 g/dL) 2.9 L Globulin (1.9 - 4.2 gm/dL) 3.1 Albumin/Globulin Ratio (1.1 - 2.2 %) 0.9 L Lipase (23 - 300 U/L) 37 Cancelled Coagulation D-Dimer High Sensitivty (0 - 243 ng/ml) 1107 H Hematology CBC w Diff MAN DIFF ORDERED WBC (4.8 - 10.8 /CUMM) 6.7 RBC (4.20 - 5.40 /CUMM) 3.68 L Hgb (12.0 - 16.0 G/DL) 9.2 L Hct (37 - 47 %) 28.2 L MCV (81.0 - 99.0 FL) 76.7 L MCH (27.0 - 31.0 PG) 25.0 L MCHC (33.0 - 37.0 G/DL) 32.7 L RDW (11.5 - 14.5 %) 17.1 H Plt Count (130 - 400 /CUMM) 342 MPV (7.4 - 10.4 FL) 8.1 Gran % (42.2 - 75.2 %) 74.9 Lymphocytes % (20.5 - 51.1 %) 13.9 L Monocytes % (1.7 - 9.3 %) 7.3 Eosinophils % (0 - 5 %) 0.7 Basophils % (0.0 - 2.0 %) 3.2 H Absolute Granulocytes (1.4 - 6.5 /CUMM) 5.0 Segmented Neutrophils (42.2 - 75.2 %) 73 Band Neutrophils (0.0 - 5.0 %) 2 Absolute Lymphocytes (1.2 - 3.4 /CUMM) 0.9 L Lymphocytes (20.5 - 51.1 %) 15 L Monocytes (1.7 - 9.3 %) 9 Absolute Monocytes (0.10 - 0.60 /CUMM) 0.5 Eosinophils (0 - 5.0 %) 1 Absolute Eosinophils (0.0 - 0.7 /CUMM) 0 Absolute Basophils (0.0 - 0.2 /CUMM) 0.2 Platelet Estimate (ADEQUATE) ADEQUATE Polychromasia 2+ Hypochromic-Microcytic 2+ Anisocytosis 1+ Microcytic Cells 1+ Imaging Results: CXR - Right lower lobe consolidation CTA chest - B/L consolidations Abd Ike - cholelithiasis, thick GB wall, ?cholecystitis Assessment/Plan Assessment/Plan Cholelithiasis -Unclear patient's symptoms are from gallstones or from the question of atypical pneumonia. -Patient has been tolerating diet with main complaint of shortness of breath. -Would treat the pneumonia/respiratory issues first -Will follow while in the hospital for any worsening abdominal pain or exacerbation of gallstones -If patient improves without surgery she will need an elective cholecystectomy -Thank you for the consult Consult Acknowledgment - Thank you for your consult request.
--- NOTE | 2018-02-05 17:51 | Admission Certification ---
Admission Certification Certification Statement - As attending physician, I certify that at the time of - admission, based on clinical presentation, severity of - symptoms, need for further diagnostic testing and - therapeutic interventions, and risk of adverse outcomes - without in-hospital treatment, in my clinical assessment, - this patient requires an acute hospital stay for a minimum - of two nights or longer. I have also considered psychsocial - factors such as support system, advanced age, financial - issues, cognitive issues, and failed out-patient treatments, - past re-admission history, safety of patient, and lack of - compliance as applicable. Specific rationale supporting this admission is: Hospitalization is required for management of acute cholecystitis And shortness of breath
[2018-02-05 19:00] VITALS: BP 128/88
[2018-02-05 23:14] VITALS: BP 118/70
[2018-02-06 06:45] VITALS: BP 128/80
--- NOTE | 2018-02-06 07:09 | PN- Housestaff ---
Marichuy GOMEZ,[facility] 02/06/18 0708: Subjective Follow-up For: Shortness of breath Atypical Pneumonia Cholelithiasis Tele-Events Since Last Visit: NSR with HR 68-73. No overnight events. Subjective: Patient seen and examined. She states her breathing is significantly better today and feels less anxious. Offers no complaints at this time. Review of Systems Constitutional: Reports: no symptoms. Objective Last 24 Hrs of Vital Signs/I&O Vital Signs Date Time Temp Pulse Resp B/P B/P Pulse O2 O2 Flow FiO2 Mean Ox Delivery Rate 02/06 1351 97.8 83 18 120/64 92 Room Air 02/06 0645 98.6 72 25 128/80 91 Room Air 02/06 0000 Nasal 2.0L Cannula 02/05 2314 99.1 70 18 118/70 90 Room Air 02/05 1900 Room Air 2.0L 02/05 1900 98.9 70 18 128/88 90 Room Air 02/05 1841 99.4 80 18 144/80 95 Room Air 02/05 1534 98.5 64 18 142/80 97 Room Air Intake & Output 02/06 1600 02/06 0800 06 0000 Intake Total 510 550 Output Total 1100 350 Balance -590 200 Intake, IV 110 100 Intake, Oral 400 450 Output, Urine 1100 350 Patient 312 lb Weight Weight Bed scale Measurement Method Physical Exam General Appearance: Alert, Oriented X3, Cooperative, Mild Distress Skin: No Rashes, No Breakdown Skin Temp/Moisture Exam: Warm/Dry Sepsis Skin Exam (color): Normal for Ethnicity HEENT: Atraumatic Cardiovascular: Normal S1, Normal S2, No Murmurs Lungs: Clear to Auscultation, Normal Air Movement Abdomen: Soft, No Tenderness Neurological: Normal Speech Extremities: No Edema Last 24 Hrs of Lab/Rosas Results Last 24 Hrs of Labs/Mics: Laboratory Tests 02/06/18 0730: Anion Gap 9, Estimated GFR > 60, BUN/Creatinine Ratio 14.3, Hemoglobin A1c 6.1 H, Triglycerides 121, Cholesterol 146, LDL Cholesterol, Calc 80, HDL Cholesterol 42, Cholesterol/HDL Ratio 3, TSH 1.470, Free T4 1.14, CBC w Diff NO MAN DIFF REQ , RBC 3.71 L, MCV 77.4 L, MCH 24.9 L, MCHC 32.2 L, RDW 16.5 H, MPV 8.2, Gran % 76.9 H, Lymphocytes % 15.3 L, Monocytes % 6.4, Eosinophils % 1.1, Basophils % 0.3, Absolute Granulocytes 4.9, Absolute Lymphocytes 1.0 L, Absolute Monocytes 0.4, Absolute Eosinophils 0.1, Absolute Basophils 0 02/05/182034: Troponin I 0.02 Microbiology 02/06 1020 URINE ROUT: Legionella Antigen - COMP 02/06 1020 URINE ROUT: Streptococcus pneumoniae Antigen (M - COMP 02/05 2035 BLOOD: Blood Culture - RES 02/05 1625 BLOOD: Blood Culture - RES Assessment/Plan Assessment: 37 yo F with no PMH presented to the ED with complains of shortness of breath for the past 2-3 days. Assessment: 1. Dyspnea 2. Gallstones with ? Acute Cholecystitis 3. Atypical Pneumonia 4. Microcytic Anemia Plan: * Discontinue telemetry. * ACS was ruled out with serial troponins and EKGs. * Her echocardiogram shows normal LVEF but elevated RVSP at 48mm Hg. * No need for further diuresis. * Her Chest CTA shows patchy areas of multifocal consolidation concerning for atypical pneumonia. While she does not have a white count would still treat her walking pneumonia * Continue IV Ceftriaxone 1g and Azithromycin 500mg daily. * Her RUQ showed cholelithiasis with regional gallbladder wall thickening concerning for cholecystitis. She is asymptomatic at this time and tolerating PO intake well. * Pain control with Tylenol (mild), Motrin (moderate) and Percocet (severe) * Diet: Regular * DVT Prophylaxis: SC Lovenox * Code: Full Code. Problem List: 1. Cholelithiasis 2. Pneumonia Pain Ratin Pain Location: none Pain Goal: Remain pain free Pain Plan: none Tomorrow's Labs & Rationales: CBC, BEP Andrés GOMEZ,Stephany 02/06/18 1341: Attending MD Review Statement Attending Statement Attending MD Statement: examined this patient, discuss w/resident/PA/SPED TEACHER, agreed w/resident/PA/SPED TEACHER, reviewed EMR data (avail), discussed with nursing, discussed with case mgmt, reviewed images Attending Assessment/Plan: 37-year-old -Fijian female status post on 01/29 who is here with rib pain right sided and was found to have multifocal consolidation likely atypical pneumonia on CT chest and was also found to have cholelithiasis with a sonographic Valdes's suggestive of cholecystitis. Patient doesn't have a fever or white count, she was seen by general surgery and is tolerating a diet well without any issues. She is getting IV ceftriaxone and azithromycin for community-acquired pneumonia specifically atypical pneumonia and will follow up on urine Legionella and strep pneumo antigen. We are feeding her and if she has no issues than likely will have an elective cholecystectomy as an outpatient. Dr. Shah read her echocardiogram and her EF is completely okay although she does have mild to moderate pulmonary hypertension. I asked Dr. Shah to formally consult on her. He was clear that this was not a cardiomyopathy and said the ideal thing to do would be to repeat the echo a limited view of the pulmonary arteries/RV systolic pressure after the pneumonia clears up but he will see the patient. I will stop the IV Lasix and continue the antibiotics for now.
[2018-02-06 08:18] LABS: ABSOLUTE BASOPHIL COUNT 0 /CUMM (0.0-0.2); ABSOLUTE EOSINOPHIL COUNT 0.1 /CUMM (0.0-0.7); ABSOLUTE GRANULOCYTE CT 4.9 /CUMM (1.4-6.5); ABSOLUTE MONOCYTE COUNT 0.4 /CUMM (0.10-0.60); BASOPHIL % 0.3 % (0.0-2.0); EOSINOPHIL % 1.1 % (0-5); GRANULOCYTE % 76.9 % (42.2-75.2); HEMATOCRIT 28.7 % (37-47); MEAN CORPUSCULAR HGB 24.9 PG (27.0-31.0); MEAN CORPUSCULAR HGB CONC 32.2 G/DL (33.0-37.0); MEAN CORPUSCULAR VOLUME 77.4 FL (81.0-99.0); MEAN PLATELET VOLUME 8.2 FL (7.4-10.4); PLATELET COUNT 348 /CUMM (130-400); RBC DISTRIBUTION WIDTH 16.5 % (11.5-14.5); RED BLOOD CELL CT 3.71 /CUMM (4.20-5.40); WHITE BLOOD CELL COUNT 6.4 /CUMM (4.8-10.8)
--- NOTE | 2018-02-06 10:16 | ECHOCARDIOGRAM REPORT ---
DENILSON HICKEY Age: 37 : 1980 Gender: F Exam Date: 02/05/2018 19:21 Exam Location: [address] Ht (in): 66 Wt (lb): 296 BSA: 2.58 BP: 142 / 80 Ordering Physician: Yuri Negron MD Referring Physician: Jose Alfredo Shah MD Technologist: Brenda Kellogg [facility] Room Number: 177 Indications: SHORTNESS OF BREATH Rhythm: Sinus Technical Quality: Fair FINDINGS Left Ventricle Normal size left ventricle. Mild concentric left ventricular hypertrophy. Normal left ventricular wall motion. Normal left ventricular ejection fraction visually estimated at >60%. Normal left ventricular diastolic filling pattern for age. Right Ventricle Normal right ventricular size and function. Right Atrium Normal right atrial size. Left Atrium Normal left atrial size. Mitral Valve Mildly calcified mitral valve annulus. Mitral valve mildly thickened. Mild mitral regurgitation. Aortic Valve Structurally normal trileaflet aortic valve. No aortic valve stenosis or regurgitation. Tricuspid Valve Structurally normal tricuspid valve. Mild tricuspid regurgitation. Mild to moderate pulmonary hypertension. Right ventricular systolic pressure estimated to be elevated at 48 mmHg. Pulmonic Valve Pulmonic valve not well visualized, grossly normal. Mild pulmonic regurgitation. Pericardium No pericardial effusion. Great Vessels Normal size aortic root. Mildly dilated inferior vena cava. CONCLUSIONS Normal size left ventricle. Mild concentric left ventricular hypertrophy. Normal left ventricular wall motion. Normal left ventricular ejection fraction visually estimated at > 60%. Normal left ventricular diastolic filling pattern for age. Normal right ventricular size and function. Normal atrial size. Mild mitral regurgitation. Mild tricuspid regurgitation. Mild to moderate pulmonary hypertension. Mild pulmonic regurgitation. Mildly dilated inferior vena cava. Jose Alfredo Shah M.D. (Electronically Signed) Final Date: 06 February 2018 10:16 MEASUREMENTS (Male / Female) Normal Values 2D ECHO LV Diastolic Diameter PLAX 4.8 cm 4.2 - 5.9 / 3.9 - 5.3 cm LV Systolic Diameter PLAX 2.8 cm 2.1 - 4.0 cm LV Fractional Shortening PLAX 41.7 % 25 - 46 % LV Ejection Fraction 2D Teich 72.5 % IVS Diastolic Thickness 1.2 cm LVPW Diastolic Thickness 1.2 cm LV Relative Wall Thickness 0.5 RV Internal Dim ED PLAX 2.8 cm 1.9 - 3.8 cm LVOT Diameter 2.1 cm Aortic Root Diameter 3.0 cm LA Systolic Diameter LX 3.9 cm 3.0 - 4.0 / 2.7 - 3.8 cm LA Volume 51.0 cm 18 - 58 / 22 - 52 cm Ascending Aorta Diameter 3.0 cm DOPPLER AV Peak Velocity 161.0 cm/s AV Peak Gradient 10.4 mmHg AV Mean Velocity 103.0 cm/s AV Mean Gradient 5.0 mmHg AV Velocity Time Integral 30.5 cm LVOT Peak Velocity 122.0 cm/s LVOT Peak Gradient 6.0 mmHg LVOT Mean Velocity 86.2 cm/s LVOT Mean Gradient 3.0 mmHg LVOT Velocity Time Integral 24.8 cm LVOT Stroke Volume 85.9 cm AV Area Cont Eq vti 2.8 cm AV Area Cont Eq pk 2.6 cm MV Peak Velocity 140.0 cm/s MV Peak Gradient 7.8 mmHg MV Mean Velocity 78.5 cm/s MV Mean Gradient 3.0 mmHg Mitral E Point Velocity 137.0 cm/s Mitral A Point Velocity 81.2 cm/s Mitral E to A Ratio 1.7 MV PHT Velocity 144.0 cm/s MV Deceleration Daggett 729.0 cm/s MV Pressure Half Time 59.3 ms MV Area PHT 3.7 cm MV Deceleration Time 193.0 ms TR Peak Velocity 329.0 cm/s TR Peak Gradient 43.3 mmHg Right Atrial Pressure 5.0 mmHg Pulmonary Artery Systolic Pressu 48.3 mmHg Right Ventricular Systolic Press 48.3 mmHg PV Peak Velocity 113.0 cm/s PV Peak Gradient 5.1 mmHg PV Mean Velocity 75.7 cm/s PV Mean Gradient 3.0 mmHg PV Velocity Time Integral 26.5 cm LV E' Lateral Velocity 15.6 cm/s Mitral E to LV E' Lateral Ratio 8.8 LV E' Septal Velocity 14.8 cm/s Mitral E to LV E' Septal Ratio 9.3
[2018-02-06 13:51] VITALS: BP 120/64
--- NOTE | 2018-02-06 15:11 | Patient Discharge Instructions ---
Discharge Instructions General Discharge Information You were seen/treated for: Pneumonia Cholecystitis Special Instructions: Please call Dr. Howard (primary care physician) on Friday, January 09 to make an appointment. Please follow up with Dr. Shah in 1 week. You will need an ECHO in 2-3 weeks. Please take the full course of antibiotics. Please follow up with a general surgeon within 1-2 weeks of discharge. Diet Continue normal diet: Yes Activity Full Activity/No Limits: Yes Acute Coronary Syndrome Inclusion Criteria At DC or during hospital stay patient has or had the following: ACS DIAGNOSIS No Discharge Core Measures Meds if any: Prescribed or Continued at Discharge Meds if any: NOT Prescribed or Continued at Discharge Congestive Heart Failure Inclusion Criteria At DC or during hospital stay patient has or had the following: CHF DIAGNOSIS No Discharge Core Measures Meds if any: Prescribed or Continued at Discharge Meds if any: NOT Prescribed or Continued at Discharge Cerebrovascular accident Inclusion Criteria At DC or during hospital stay patient has or had the following: CVA/TIA Diagnosis No Discharge Core Measures Meds if any: Prescribed or Continued at Discharge Meds if any: NOT Prescribed or Continued at Discharge Venous thromboembolism Inclusion Criteria VTE Diagnosis No VTE Type NONE VTE Confirmed by (Test) NONE Discharge Core Measures - Per Current guidelines, there needs to be overlap - treatment for the first 5 days of Warfarin therapy. - If discharged on Warfarin prior to 5 days of - overlap therapy, the patient will need to be - assessed for post discharge needs including - *Post discharge parental anticoagulation - *Warfarin and/or parental anticoagulation education - *Follow up date to check INR post discharge At least 5 days overlap therapy as Inpatient No Meds if any: Prescribed or Continued at Discharge Note: Overlap Therapy is Warfarin and Anticoagulant Meds if any: NOT Prescribed or Continued at Discharge
[2018-02-06 22:00] VITALS: BP 132/66
[2018-02-07 06:50] VITALS: BP 140/70
[2018-02-07 08:00] LABS: ABSOLUTE BASOPHIL COUNT 0 /CUMM (0.0-0.2); ABSOLUTE EOSINOPHIL COUNT 0.1 /CUMM (0.0-0.7); ABSOLUTE GRANULOCYTE CT 3.9 /CUMM (1.4-6.5); ABSOLUTE LYMPH COUNT 1.4 /CUMM (1.2-3.4); ABSOLUTE MONOCYTE COUNT 0.6 /CUMM (0.10-0.60); BASOPHIL % 0.5 % (0.0-2.0); EOSINOPHIL % 1.6 % (0-5); HEMATOCRIT 29.5 % (37-47); MEAN CORPUSCULAR HGB 24.6 PG (27.0-31.0); MEAN CORPUSCULAR HGB CONC 32.4 G/DL (33.0-37.0); MEAN PLATELET VOLUME 8.3 FL (7.4-10.4); PLATELET COUNT 329 /CUMM (130-400); RBC DISTRIBUTION WIDTH 17.6 % (11.5-14.5); RED BLOOD CELL CT 3.88 /CUMM (4.20-5.40)
[2018-02-07] MEDS ORDERED: LEVAQUIN500 M1 PO (09:26)
--- NOTE | 2018-02-07 09:42 | PN- Att Addend ---
Attending Addendum Attending Brief Note Patient feels completely well and she is eager to go home. On exam blood pressure is 140/70, pulse is 66, breathing at 16-18, sat of 95% on room air and afebrile. Awake, alert, oriented, lungs are clear to auscultation, heart is S1-S2 regular, abdomen is obese nontender and the surgical site appears well-healed from her . Her edema is markedly improved and now it's trace. Labs show a BUN of 9, creatinine of 0.7 and a white count of 6 She is a 37-year-old female status post on January 29 who came in with shortness of breath. CTA was negative for PE but showed multifocal consolidation consistent with atypical pneumonia. There were also gallstones with sonographic Valdes's but surgery is not convinced that this is acute cholecystitis- this is cholelithiasis and she'll need an elective cholecystectomy in the future. Echocardiogram showed normal EF but mild pulmonary hypertension. I spoke to Dr. Shah about this and the plan is that she will see him in the office and will have a repeat echocardiogram once her pneumonia is resolved. I spoke to the patient about all of this. I gave her a referral to Dr. Howard at the [facility] site and she is going to call first thing Friday morning to establish care, she also knows that she needs to follow-up with Dr. Palomo for an elective cholecystectomy for her gallstones and needs to follow-up with Dr. Shah to repeat her echo. She is very clear that she is not breast-feeding I repeated that to her many times and she's not going to breast-feed so will discharge on a Quinolone. It has good oral bioavailability and will cover the atypical pneumonia as well as any possible biliary issue. Total 5 days of antibiotics and outpatient follow- up. Total time spent talking to patient and coordinating discharge was 33 minutes.
--- NOTE | 2018-02-08 18:44 | Discharge Summary ---
Visit Information Visit Dates Admission Date: 02/05/18 Discharge Date: 02/07/18 Hospital Course Course Attending Physician: Andrés GOMEZ,Stephany Munoz Primary Care Physician: Patient Has No Primary Care Dr Hospital Course: Ms Wu is a 37 yo F with no significant PMH who presented to the ED with complains of shortness of breath for the past 2-3 days. Below is a list of conditions she was seen and treated for: 1. Dyspnea 2. Gallstones with possible acute cholecystitis 3. Atypical Pneumonia On admission, patient reported feeling dyspneic despite maintaining her saturations on room air. She was evaluated with a chest CTA which did not show any evidence of pulmonary emboli but did reveal multifocal consolidation suggestive of atypical pnemonia. Further imaging in the ED with abdominal U/S showed gallstones with some regional gallbladder wall thickening and with sonographic Valdes's, concerning for acute cholecystitis. Given her constellation of symptoms, she was admitted to telemetry unit for further monitoring. She was started on IV Ceftriaxone and Azithromycin for her underlying infection. Given her recent history of , there was a concern for cardiomyopathy. She was evaluated by cardiology and an echocardiogram was performed which showed normal EF but mild pulmonary hypertension. 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 General surgery was asked to evaluate regarding possible cholecystitis. However, it was felt that the patient has cholelithiasis and not active inflammation. She clinically did not have any symptoms of nausea or abdominal pain with oral intake. She is recommended an elective cholecystectomy once her pneumonia resolved. At the time of discharge, her antibiotics was swtiched to PO Levofloxacin. She was very clear that she is not breast-feeding and was counselled extensively to avoid so while on the antibiotic. She was discharged in stable disposition. Allergies: Coded Allergies: NO KNOWN ALLERGIES (02/02/16) Significant Procedures: SERVICE DATE: 02/05/18161 EXAM TYPE: CARD - ECHOCARDIOGRAM FINDINGS Left Ventricle Normal size left ventricle. Mild concentric left ventricular hypertrophy. Normal left ventricular wall motion. Normal left ventricular ejection fraction visually estimated at >60%. Normal left ventricular diastolic filling pattern for age. Right Ventricle Normal right ventricular size and function. Right Atrium Normal right atrial size. Left Atrium Normal left atrial size. Mitral Valve Mildly calcified mitral valve annulus. Mitral valve mildly thickened. Mild mitral regurgitation. Aortic Valve Structurally normal trileaflet aortic valve. No aortic valve stenosis or regurgitation. Tricuspid Valve Structurally normal tricuspid valve. Mild tricuspid regurgitation. Mild to moderate pulmonary hypertension. Right ventricular systolic pressure estimated to be elevated at 48 mmHg. Pulmonic Valve Pulmonic valve not well visualized, grossly normal. Mild pulmonic regurgitation. Pericardium No pericardial effusion. Great Vessels Normal size aortic root. Mildly dilated inferior vena cava. CONCLUSIONS Normal size left ventricle. Mild concentric left ventricular hypertrophy. Normal left ventricular wall motion. Normal left ventricular ejection fraction visually estimated at > 60%. Normal left ventricular diastolic filling pattern for age. Normal right ventricular size and function. Normal atrial size. Mild mitral regurgitation. Mild tricuspid regurgitation. Mild to moderate pulmonary hypertension. Mild pulmonic regurgitation. Mildly dilated inferior vena cava. SERVICE DATE: 02/05/18 EXAM TYPE: CAT - CTA CHEST-PULMONARY EMBOLISM FINDINGS: QUALITY OF STUDY/CONTRAST BOLUS: Satisfactory PULMONARY ARTERIES: No central or segmental pulmonary emboli. THORACIC AORTA: No aneurysm or dissection. LUNG: The central airways are patent. There are patchy areas of consolidation throughout both lungs but predominantly involving the right upper and middle lobes and the bilateral lower lobes. There is some associated interlobular septal thickening. No confluent consolidation is seen. PLEURA: No pleural effusion or pneumothorax. MEDIASTINUM: Normal heart size. No pericardial effusion. No hilar or mediastinal lymphadenopathy. No evidence of septal bowing or right heart strain. CHEST WALL/AXILLA: No axillary or internal mammary lymphadenopathy. OSSEOUS STRUCTURES: Mild dextroscoliotic curvature centered in the lower thoracic spine. UPPER ABDOMEN: No reflux of contrast into the hepatic veins to suggest elevated right heart pressures. IMPRESSION: - No central or segmental pulmonary embolism. - Patchy areas of multifocal consolidation involving both lungs compatible with atypical pneumonia. No confluent consolidation is seen. VTE: negative SERVICE DATE: 02/05/18 EXAM TYPE: RAD - XRY-CHEST XRAY, TWO VIEWS FINDINGS: Cardiovascular mediastinal structures remain normal. Left lung is clear. There is a trace right pleural effusion. Peribronchial thickening involving the right lower lobe is thought to represent early atypical pneumonia. IMPRESSION: Early atypical pneumonia right lower lobe. Trace right pleural effusion. SERVICE DATE: 02/05/18 EXAM TYPE: US - US-LIMITED ABDOMEN FINDINGS: PANCREAS: Visualized portions of pancreas are normal in appearance. LIVER: The liver appears mildly enlarged. The liver demonstrates normal contour and echogenicity. No focal lesion or intrahepatic biliary duct dilatation. GALLBLADDER: The gallbladder is physiologically distended. Several gallstones are appreciated. There is regional gallbladder wall thickening where it abuts the liver, measuring up to 1.4 cm in thickness. There is some edema in this region of thickening. Sonographic Valdes's sign is positive. COMMON BILE DUCT: Normal in caliber measuring 0.3 cm in diameter. RIGHT KIDNEY: Normal. No hydronephrosis. No renal calculi or focal parenchymal lesions. The kidney measures 13.1 cm in maximum dimension. FREE FLUID: None. IMPRESSION: Gallstones are present within a physiologically distended gallbladder. There is regional gallbladder wall thickening measuring up to 1.4 cm where the gallbladder abuts the liver. There is some edema in this region of wall thickening. Sonographic Valdes sign is positive. There is a long differential for these findings. This may represent early acute cholecystitis. This may also represent changes related to liver abnormality/disease. Clinical correlation and correlation with lab values is required. Disposition Summary Disposition Principal Diagnosis: Atypical Pneumonia Cholelithiasis Additional Diagnosis: none Discharge Disposition: home or self care Discharge Instructions General Discharge Information Code Status: Full Code Patient's Diet: Regular Patient's Activity: As tolerated Follow-Up Instructions/Appts: Please call Dr. Howard (primary care physician) on Friday, January 09 to make an appointment. Please follow up with Dr. Shah in 1 week. You will need an ECHO in 2-3 weeks. Please take the full course of antibiotics. Please follow up with a general surgeon within 1-2 weeks of discharge. Medications at Discharge Discharge Medications: Start taking the following new medications: Levofloxacin (Levaquin) 500 MG TABLET 1 Tablet ORAL DAILY Qty = 3 No Refills Comments: Not given in hospital Copies To: Anita GOMEZ,nAita; Pablo GOMEZ,Jose Alfredo Holley
== END 2018-02-07 10:05 | DRG 776 ==
LOC: ERH 09:31 → 1NO 15:33 → ERHI 15:33 → EDBEDREQ 16:18 → EDBEDREQTM 16:18 → ENRESERV 17:50 → ENTRNSPT 18:43 → 1NO 18:45 → EDTRNSPTSTS 18:47 → EDTRNSPT 18:47 → 1NO 18:56 → CMPTRNSPT 19:10 → 1NO 02-06 07:19 → ENPENDDIS 02-07 09:28 → 1NO 02-07 10:05
PROVIDERS: Internal Medicine; Physician Assistant Medical
DX: O99.53 Diseases of the respiratory system complicating the puerperium (principal); J18.9 Pneumonia, unspecified organism; D50.9 Iron deficiency anemia, unspecified; K80.20 Calculus of gallbladder without cholecystitis without obstruction; O99.63 Diseases of the digestive system complicating the puerperium
CPT/HCPCS: 1NP; 36415; 36592; 71046; 82436; 87040; 87449; 87450; 93005; 93010; 93306; 99291; J0456; J0696; J1650; J1940; J7040